=== PATIENT | female | born 1985 | race Caucasian/White ===

== ENCOUNTER 2017-04-03 | Outpatient (CLI) | payer BC ==
--- NOTE | 2017-05-02 09:19 | P.MSEPDOC ---
Presenting Problems - Arrival Data Date of Arrival on Unit: 04/03/17 Time of Arrival on Unit: 19:53 Mode of Transport: Ambulatory - Complaint OB-Reason for Admission/Chief Complaint: Possible Onset of Labor Medical History - Information : 2 Para: 1 Term: 1 : 0 Abortions: Spontaneous or Elective: 0 Number of Living Children: 1 - Gestational Age Gestational Age by JACQUELINE (wks/days): 37 Weeks and 2 Days Review of Systems - Review of Systems Constitutional: No problems Breast: No problems ENT: No problems Cardiovascular: No problems Respiratory: No problems Gastrointestinal: No problems Genitourinary: No problems Musculoskeletal: No problems Neurological: No problems Skin: No problems Vital Signs - Temperature Temperature: 97.7 F Temperature Source: Temporal Artery Scan - Pulse Pulse Oximetery Pulse Rate: 92 Pulse Assessment Method: Automatic Cuff - Respirations Respiratory Rate: 15 Oxygen Delivery Method: Room Air O2 Sat by Pulse Oximetry: 100 - Blood Pressure Right Arm Blood Pressure: 137/80 Blood Pressure Mean: 99 Blood Pressure Source: Automatic Cuff Medical Screen Scoring (Pre) - Cervical Exam Dilation: 1-3 cm = 1 Effacement: More than 50% = 2 Membranes: Intact - Uterine Contractions Frequency: > 5 minutes apart = 1 Duration: N/A Intensity: N/A - Maternal Vital Signs Maternal Temperature: N/A Maternal Blood Pressure: N/A Signs of Preeclampsia: N/A Maternal Respirations: N/A - Maternal Trauma Maternal Trauma: N/A - Assessment Baseline FHR: 135 Heart Rate - NICHD Category: Category I (Normal) = 0 NST: Reactive Position: N/A Station: N/A - Total Score Total Score (Pre): 4 - Level of Risk Level of Risk: Low (0-5) Medical Screen Scoring (Post) - Cervical Exam Dilation: 1-3 cm = 1 Effacement: More than 50% = 2 Membranes: Intact - Uterine Contractions Frequency: > 5 minutes apart = 1 Duration: N/A Intensity: N/A - Maternal Vital Signs Maternal Temperature: N/A Maternal Blood Pressure: N/A Signs of Preeclampsia: N/A Maternal Respirations: N/A - Maternal Trauma Maternal Trauma: N/A - Assessment Heart Rate: 130 Heart Rate - NICHD Category: Category I (Normal) = 0 NST: Reactive Position: N/A Station: N/A - Total Score Total Score (Post): 4 - Post Treatment Level of Risk Post Treatment Level of Risk: Low (0-5) Physician Notification (Post) - Physician Notified Physician Notified Date: 04/03/17 Physician Notified Time: 21:19 Physician/Practitioner Notified:: Dr Bustos New Order Received: Yes Disposition - Disposition OB Disposition: Discharge to home, Written follow up instructions reviewed Discharge Date: 04/03/17 Discharge Time: 21:25 I agree with the RN Medical Screening Exam: Yes Risk & Benefit of care provided described in d/c instruction: Yes Diagnosis: FALSE LABOR BEFORE 37 COMPLETED WEEKS OF GEST, THIRD TRI
== END 2017-04-03 21:25 | disposition home or self-care (01) ==
CPT/HCPCS: 59025; 99213

== ENCOUNTER 2017-04-21 06:04 | Inpatient (IN) | payer BC ==
[2017-04-21] MEDS: LACTATED RINGERS 1,000 ML IV SCH ×2 (06:15→09:50)
[2017-04-21] MEDS ORDERED: CARBOPROST TROMETHAMINE 250 MCG/ML 1 ML AMP IM PRN (06:22)
[2017-04-21] MEDS ORDERED: METHYLERGONOVINE 0.2 MG/ML 1 ML AMP IM PRN (06:22)
[2017-04-21] MEDS ORDERED: OXYTOCIN 10 UNIT/ML 1 ML VIAL IM PRN (06:22)
[2017-04-21] MEDS ORDERED: TERBUTALINE 1 MG/ML VIAL SQ PRN (06:22)
[2017-04-21] MEDS ORDERED: LIDOCAINE 1% (PF) 10 MG/ML (30 ML SDV) SQ PRN (06:22)
[2017-04-21 06:30] LABS: Basophils % (A) 0 %; CH 31.5; CHCM 33.8; Eosinophils # (A) 0.1 k/uL (0-0.7); Eosinophils % (A) 1 %; HCT 39.2 % (34.0-46.0); HGB 12.9 gm/dL (11.4-16.0); Luc # (Auto) 0.17; Luc % (Auto) 2; Lymphocytes # (A) 1.9 k/uL (1.0-4.8); Lymphocytes % (A) 19 %; MCH 30.9 pg (25.0-35.0); MCHC 32.9 g/dL (31.0-37.0); MCV 94.1 fL (80.0-100.0); Mean Platelet Volume 9.4; Monocytes # (A) 0.6 k/uL (0-1.0); Monocytes % (A) 6 %; Neutrophils # (A) 7.3 k/uL (1.3-7.7); Neutrophils % (A) 73 %; RBC 4.17 m/uL (3.80-5.40); RDW 14.6 % (11.5-15.5); WBC (Perox) 10.79
[2017-04-21] MEDS ORDERED: OXYTOCIN 20 UNITS/1000 ML NS 1,000 ML IV SCH ×2 (06:30→12:00)
--- NOTE | 2017-04-21 08:37 | P.HPOB ---
History of Present Illness H&P Date: 04/21/17 Chief Complaint: IUP at 39-6/7 weeks, elective induction of labor This is a very pleasant 31-year-old 2 para 1001 at 39-6/7 weeks with an estimated date of delivery of 04/22/2017. She presents today for elective induction of labor. She notes good movement, denies contractions, denies loss of fluid or vaginal bleeding. Next On blood work she showed a blood type of A+, rubella immune, hepatitis B surface antigen negative, GBS negative, HIV negative, RPR negative. Past Medical History Past Medical History: No Reported History History of Any Multi-Drug Resistant Organisms: None Reported Past Surgical History: No Surgical Hx Reported Past Anesthesia/Blood Transfusion Reactions: No Reported Reaction Past Psychological History: No Psychological Hx Reported Smoking Status: Never smoker Past Drug Use History: None Reported - Past Family History Father Family Medical History: Diabetes Mellitus, Thyroid Disorder Medications and Allergies Home Medications Medication Instructions Recorded Confirmed Type Pedi Multivit No.25/Folic Acid 2 tab PO DAILY 04/03/17 04/21/17 History [Flintstones Multivit Chew Tab] Allergies Allergy/AdvReac Type Severity Reaction Status Date / Time No Known Allergies Allergy Verified 04/21/17 06:20 Exam Osteopathic Statement: *. No significant issues noted on an osteopathic structural exam other than those noted in the History and Physical/Consult. - Vital Signs Vital signs: Vital Signs Temp Pulse Resp BP Pulse Ox 04/21/17 06:42 96.6 F L 79 18 106/56 99 Intake and Output 04/20/17 04/21/17 04/21/17 22:59 06:59 14:59 Other: Weight 76.204 kg - OBG Physical Exam Vulva: both: normal Cervix: 4/80/-2, artificial rupture of membranes with meconium-stained fluid. Uterus: Gravid Results Result Diagrams: 04/21/17 06:05 Assessment and Plan (1) Term Narrative/Plan: Will admit to labor and delivery for elective induction of labor. Pitocin per protocol. I did discuss options for pain control during labor patient wishes to wait and see how it goes. Epidural okay at any time per patient request Status: Acute
[2017-04-21] MEDS ORDERED: SODIUM CHLORIDE 0.9% 100 ML BAG ONE (09:36)
[2017-04-21] MEDS ORDERED: BUPIVACAINE (PF) 0.25% 30 ML VIAL ONE (09:36)
[2017-04-21] MEDS ORDERED: fentaNYL (PF) 50 MCG/ML 5 ML AMP ONE (09:36)
[2017-04-21 10:00] VITALS: BMI 27.9
[2017-04-21] MEDS ORDERED: BUPIVACAINE (PF) 0.25% 25 ML, fentaNYL (PF) 200 MCG in SODIUM CHLORIDE 0.9% 71 ML EPIDURAL ONE (10:05)
[2017-04-21] MEDS ORDERED: diphenhydrAMINE 50 MG/ML 1 ML VIAL IVP PRN ×2 (11:48)
[2017-04-21] MEDS ORDERED: WITCH HAZEL 1 EACH MED..PAD TOPICAL PRN (11:48)
[2017-04-21] MEDS ORDERED: ACETAMINOPHEN TAB 325 MG TAB PO PRN (11:48)
[2017-04-21] MEDS ORDERED: diphenhydrAMINE 50 MG CAP PO PRN (11:48)
[2017-04-21] MEDS ORDERED: ZOLPIDEM 5 MG TAB PO PRN (11:48)
[2017-04-21] MEDS ORDERED: LANOLIN CREAM 5 GM TUBE TOPICAL PRN (11:48)
[2017-04-21] MEDS ORDERED: diphenhydrAMINE 25 MG CAP PO PRN (11:48)
[2017-04-21] MEDS ORDERED: SIMETHICONE 80 MG CHEWABLE PO PRN (11:48)
[2017-04-21] MEDS ORDERED: BENZOCAINE/MENTHOL SPRAY 1 GM/SPRAY AEROSOL TOPICAL PRN (11:48)
[2017-04-21] MEDS ORDERED: Acetaminophen-Codeine 300-30mg TAB PO PRN ×2 (11:48)
[2017-04-21] MEDS ORDERED: HYDROCORTISONE 2.5% RECTAL CREAM 30 GM TUBE RECTAL PRN (11:48)
[2017-04-21] MEDS ORDERED: IBUPROFEN 600 MG TAB PO PRN (11:48)
--- NOTE | 2017-04-21 11:48 | P.PROBDLV ---
Vaginal Delivery Note - . Vaginal Delivery Note: This is a very pleasant 2 para 1 that presented for elective induction of labor earlier this morning. She progressed after Pitocin induction of labor and amniotomy to complete and had a spontaneous vaginal delivery of a viable male Preoperative diagnosis IUP at 39-6/7 weeks Postoperative diagnosis same plus meconium-stained fluid Procedure spontaneous vaginal delivery, amniotomy, second degree midline vaginal laceration with repair Surgeon July Nielsen DO Anesthesia epidural, local with repair Estimated blood loss 300 mL Findings male infant in occiput anterior position loose nuchal delivered through , spontaneous cry from male infant weight of 8 lbs. 3 oz. at 1129 Apgars of 8 and 9 at one and 5 minutes respectively Complications none Specimen placenta
[2017-04-22] MEDS: SENNOSIDES-DOCUSATE SODIUM 1 EACH TAB PO SCH ×2 (02:51→10:17)
[2017-04-22] MEDS ORDERED: MULTIVITAMINS, PEDIATRIC 1 EACH CHEWABLE PO SCH (09:00)
[2017-04-22 10:11] VITALS: BP 111/70; PULSE 75; RESP 20; TEMP 98.2
--- NOTE | 2017-04-22 11:33 | P.PNOBGVD ---
Subjective - Subjective Principal diagnosis: Status post normal spontaneous vaginal delivery Interval history: Ashley is status post normal spontaneous vaginal delivery. She is feeling well. She states her lochia is minimal. She has ambulating and voiding without difficulty. She is tolerating a regular diet without nausea or vomiting. She is not taking anything for pain as she states it is unnecessary. She denies any concerns and wishes discharge home Patient reports: Reports appetite normal, Reports voiding normally, Reports pain well controlled [place]: doing well (At the bedside with mom) Objective - Latest Vital Signs Latest vital signs: Vital Signs Temp Pulse Resp BP Pulse Ox 04/22/17 08:00 98.2 F 75 20 111/70 98 04/21/17 23:51 98.0 F 77 18 130/91 04/21/17 20:00 98.3 F 82 16 104/65 04/21/17 16:00 98.3 F 80 16 121/64 04/21/17 13:44 98.0 F 77 14 115/65 04/21/17 13:14 75 16 107/56 04/21/17 12:44 82 16 107/58 04/21/17 12:29 97.5 F L 82 16 113/56 04/21/17 12:14 84 16 115/59 04/21/17 11:59 88 16 112/57 04/21/17 11:44 97.5 F L 87 16 109/53 Intake and Output 04/21/17 04/22/17 04/22/17 22:59 06:59 14:59 Intake Total 600 Balance 600 Intake: Oral 600 Other: # Voids 2 - Exam Extremities: Present: normal Abdomen: Present: normal appearance Uterus: Present: firm Assessment and Plan (1) Term Narrative/Plan: We'll plan discharge home this afternoon. Discharge instructions were reviewed along with follow-up with myself in 4-6 weeks at [facility]. She is to take [id number] Motrin as needed for discomfort. She declines a need for other medications. Current Visit: Yes Status: Acute Code(s): Z34.80 - ENCOUNTER FOR SUPRVSN OF NORMAL , UNSP TRIMESTER SNOMED Code(s): 67493352
--- NOTE | 2017-04-22 11:36 | P.DS ---
Providers Date of admission: 04/21/17 06:04 Expected date of discharge: 04/22/17 Attending physician: July Nielsen Primary care physician: Stated None - Discharge Diagnosis(es) (1) Term This is a very pleasant 31-year-old 2 para 1001 at 39-6/7 weeks. She presented on 04/21/2017 for elective induction of labor. She had an uncomplicated . Her labor was uncomplicated Pitocin augmentation eventually receiving an epidural. she had a spontaneous vaginal delivery of a viable male at 1128 Apgars of 8 and 9 at one and 5 minutes respectively. She did sustain a second-degree midline vaginal laceration which was repaired without difficulty in the usual fashion. Her course was uncomplicated. On day #1 she is ambulating and voiding without difficulty. She is tolerating a regular diet without nausea or vomiting. Her lochia is minimal and she is breast-feeding without difficulty. Current Visit: Yes Status: Acute Plan - Discharge Summary New Discharge Prescriptions: No Action Pedi Multivit No.25/Folic Acid [Flintstones Multivit Chew Tab] 2 tab PO DAILY Discharge Medication List Pedi Multivit No.25/Folic Acid [Flintstones Multivit Chew Tab] 2 tab PO DAILY [History] Follow up Appointment(s)/Referral(s): July Nielsen DO [Doctor of Osteopathic Medicine] - 4 Weeks Patient Instructions/Handouts: Vaginal Delivery (DC) Discharge Disposition: HOME SELF-CARE
== END 2017-04-22 14:00 | disposition home or self-care (01) | DRG 775 ==
LOC: 4FBP 06:04
PROVIDERS: ADMIT Obstetrics & Gynecology Obstetrics; ATTEND Obstetrics & Gynecology Obstetrics
PROC: 3E0R3CZ (ICD-10-PCS; principal; 2017-04-21)
PROC: 3E033VJ Introduction of Other Hormone into Peripheral Vein, Percutaneous Approach (ICD-10-PCS; principal; 2017-04-21)
PROC: 10907ZC Drainage of Amniotic Fluid, Therapeutic from Products of Conception, Via Natural or Artificial Opening (ICD-10-PCS; principal; 2017-04-21)
PROC: 0KQM0ZZ Repair Perineum Muscle, Open Approach (ICD-10-PCS; principal; 2017-04-21)
PROC: 10E0XZZ Delivery of Products of Conception, External Approach (ICD-10-PCS; principal; 2017-04-21)
PROC: 00HU33Z Insertion of Infusion Device into Spinal Canal, Percutaneous Approach (ICD-10-PCS; principal; 2017-04-21)
DX: O70.1 Second degree perineal laceration during delivery (principal); Z37.0 Single live birth; O77.0 Labor and delivery complicated by meconium in amniotic fluid; Z3A.39 39 weeks gestation of pregnancy; O69.81X0 Labor and delivery complicated by cord around neck, without compression, not applicable or unspecified
CPT/HCPCS: 85025; 88307

== ENCOUNTER 2021-10-02 12:17 | Emergency (ER) | payer BC ==
[2021-10-02 12:35] VITALS: TEMP 97.8
--- NOTE | 2021-10-02 13:06 | ED ---
General Adult HPI - General Chief complaint: Abdominal Pain Stated complaint: Abdominal Pain/Discomfort Time Seen by Provider: 10/02/21 12:52 Source: patient, RN notes reviewed Mode of arrival: ambulatory Limitations: no limitations - History of Present Illness Initial comments: Patient is a 36-year-old female presented to the emergency room today with chief complaint of abdominal pain. Patient does admit that over the last 4 years after giving she's had some abdominal umbilical tenderness. Around her menstrual cycle. She states this occurred this past week. She states it usually will go away but has not. She's had pain present for the last week. She followed the family doctor was going to obtain an ultrasound. She states pain was getting worse and she came here to the emergency room. She does admit that at the umbilical area there is a small area that seems to be discolored with this bump. Patient states this is locally tender as well but there is tenderness at down distally into the left lower quadrant. The patient denies any other complaints or any other symptoms. - Related Data Home Medications Medication Instructions Recorded Confirmed No Known Home Medications 10/02/21 10/02/21 Allergies Allergy/AdvReac Type Severity Reaction Status Date / Time No Known Allergies Allergy Verified 10/02/21 13:56 Review of Systems ROS Statement: Those systems with pertinent positive or pertinent negative responses have been documented in the HPI. ROS Other: All systems not noted in ROS Statement are negative. Past Medical History Past Medical History: No Reported History History of Any Multi-Drug Resistant Organisms: None Reported Past Surgical History: No Surgical Hx Reported Past Anesthesia/Blood Transfusion Reactions: No Reported Reaction Past Psychological History: No Psychological Hx Reported Smoking Status: Never smoker Past Alcohol Use History: None Reported Past Drug Use History: None Reported - Past Family History Father Family Medical History: Diabetes Mellitus, Thyroid Disorder General Exam - General Exam Comments Initial Comments: General: The patient is awake and alert, in no distress, and does not appear acutely ill. Eye: extra-ocular movements are intact. No nystagmus. There is normal conjunctiva bilaterally. No signs of icterus. Ears, nose, mouth and throat: There are moist mucous membranes and no oral lesions. Neck: The neck is supple Cardiovascular: There is a regular rate and rhythm. No murmur, rub or gallop is appreciated. Respiratory: Lungs are clear to auscultation, respirations are non-labored, breath sounds are equal. No wheezes, stridor, rales, or rhonchi. Gastrointestinal: Patient does have small hernia at the umbilicus. Patient also locally tender left lower quadrant. There is no rebound or guarding. Musculoskeletal: Normal ROM, no tenderness. Strength 5/5. Sensation intact. Neurological: A&O x 3. CN II-XII intact, There are no obvious motor or sensory deficits. Coordination appears grossly intact. Speech is normal. Skin: Skin is warm and dry and no rashes or lesions are noted. Psychiatric: Cooperative, appropriate mood & affect, normal judgment. Limitations: no limitations Course Vital Signs 10/02/21 10/02/21 10/02/21 12:33 13:35 15:00 Temperature 97.8 F Pulse Rate 89 82 86 Respiratory 20 18 16 Rate Blood Pressure 120/84 122/82 125/74 O2 Sat by Pulse 100 97 98 Oximetry Medical Decision Making - Medical Decision Making Patient reexamined dressing covered. Patient's CT then poses been reviewed and does show a fecal containing hernia. No bowel wall. Results were discussed with the patient. Labs been reviewed are unremarkable. She is resting comfortable. Patient will be discharged to follow-up with surgeon. Advised ret urn if any symptoms increase or worsen or for any other concerns per she states her stated and is agreement. - Lab Data Result diagrams: 10/02/21 13:08 10/02/21 13:08 Lab Results 10/02/21 10/02/21 10/02/21 Range/Units 13:08 13:08 13:38 WBC 9.8 (3.8-10.6) k/uL RBC 4.70 (3.80-5.40) m/uL Hgb 14.0 (11.4-16.0) gm/dL Hct 42.0 (34.0-46.0) % MCV 89.4 (80.0-100.0) fL MCH 29.8 (25.0-35.0) pg MCHC 33.3 (31.0-37.0) g/dL RDW 12.6 (11.5-15.5) % Plt Count 248 (150-450) k/uL MPV 7.9 Neutrophils % 72 % Lymphocytes % 20 % Monocytes % 5 % Eosinophils % 1 % Basophils % 0 % Neutrophils # 7.1 (1.3-7.7) k/uL Lymphocytes # 2.0 (1.0-4.8) k/uL Monocytes # 0.5 (0-1.0) k/uL Eosinophils # 0.1 (0-0.7) k/uL Basophils # 0.0 (0-0.2) k/uL Sodium 137 (137-145) mmol/L Potassium 3.9 (3.5-5.1) mmol/L Chloride 102 (98-107) mmol/L Carbon Dioxide 29 (22-30) mmol/L Anion Gap 6 mmol/L BUN 12 (7-17) mg/dL Creatinine 0.68 (0.52-1.04) mg/dL Est GFR (CKD-EPI)AfAm >90 (>60 ml/min/1.73 sqM) Est GFR (CKD-EPI)NonAf >90 (>60 ml/min/1.73 sqM) Glucose 124 H (74-99) mg/dL Calcium 9.4 (8.4-10.2) mg/dL Total Bilirubin 0.4 (0.2-1.3) mg/dL AST 24 (14-36) U/L ALT 16 (4-34) U/L Alkaline Phosphatase 59 (38-126) U/L Total Protein 7.6 (6.3-8.2) g/dL Albumin 4.3 (3.5-5.0) g/dL Urine Color Yellow Urine Appearance Clear (Clear) Urine pH 6.5 (5.0-8.0) Ur Specific [place] 1.013 (1.001-1.035) Urine Protein Negative (Negative) Urine Glucose (UA) Negative (Negative) Urine Ketones Negative (Negative) Urine Blood Negative (Negative) Urine Nitrite Negative (Negative) Urine Bilirubin Negative (Negative) Urine Urobilinogen <2.0 (<2.0) mg/dL Ur Leukocyte Esterase Negative (Negative) Urine HCG, Qual (Not Detectd) 10/02/21 Range/Units 13:38 WBC (3.8-10.6) k/uL RBC (3.80-5.40) m/uL Hgb (11.4-16.0) gm/dL Hct (34.0-46.0) % MCV (80.0-100.0) fL MCH (25.0-35.0) pg MCHC (31.0-37.0) g/dL RDW (11.5-15.5) % Plt Count (150-450) k/uL MPV Neutrophils % % Lymphocytes % % Monocytes % % Eosinophils % % Basophils % % Neutrophils # (1.3-7.7) k/uL Lymphocytes # (1.0-4.8) k/uL Monocytes # (0-1.0) k/uL Eosinophils # (0-0.7) k/uL Basophils # (0-0.2) k/uL Sodium (137-145) mmol/L Potassium (3.5-5.1) mmol/L Chloride (98-107) mmol/L Carbon Dioxide (22-30) mmol/L Anion Gap mmol/L BUN (7-17) mg/dL Creatinine (0.52-1.04) mg/dL Est GFR (CKD-EPI)AfAm (>60 ml/min/1.73 sqM) Est GFR (CKD-EPI)NonAf (>60 ml/min/1.73 sqM) Glucose (74-99) mg/dL Calcium (8.4-10.2) mg/dL Total Bilirubin (0.2-1.3) mg/dL AST (14-36) U/L ALT (4-34) U/L Alkaline Phosphatase (38-126) U/L Total Protein (6.3-8.2) g/dL Albumin (3.5-5.0) g/dL Urine Color Urine Appearance (Clear) Urine pH (5.0-8.0) Ur Specific [place] (1.001-1.035) Urine Protein (Negative) Urine Glucose (UA) (Negative) Urine Ketones (Negative) Urine Blood (Negative) Urine Nitrite (Negative) Urine Bilirubin (Negative) Urine Urobilinogen (<2.0) mg/dL Ur Leukocyte Esterase (Negative) Urine HCG, Qual Not Detected (Not Detectd) Disposition Clinical Impression: Umbilical hernia Disposition: HOME SELF-CARE Condition: Good Instructions (If sedation given, give patient instructions): Umbilical Hernia (ED) Additional Instructions: Please follow-up with general surgeon in the next 2 days. Please return to emergency room if the symptoms increase or worsen or for any other concerns. Is patient prescribed a controlled substance at d/c from ED?: No Referrals: July Nielsen DO [Primary Care Provider] - 1-2 days Joy Velazco DO [Doctor of Osteopathic Medicine] - 1-2 days Time of Disposition: 15:32
[2021-10-02 13:21] LABS: Basophils % (A) 0 %; Eosinophils # (A) 0.1 k/uL (0-0.7); Eosinophils % (A) 1 %; Lymphocytes % (A) 20 %; MCH 29.8 pg (25.0-35.0); MCHC 33.3 g/dL (31.0-37.0); MCV 89.4 fL (80.0-100.0); Mean Platelet Volume 7.9; Monocytes # (A) 0.5 k/uL (0-1.0); Monocytes % (A) 5 %; Neutrophils # (A) 7.1 k/uL (1.3-7.7); Neutrophils % (A) 72 %; Platelet Count 248 k/uL (150-450); RDW 12.6 % (11.5-15.5); WBC 9.8 k/uL (3.8-10.6)
[2021-10-02 13:35] LABS: ALT 16 U/L (4-34); AST 24 U/L (14-36); African American GFR (CKD) >90 (>60 ml/min/1.73 sqM); Albumin 4.3 g/dL (3.5-5.0); Alkaline Phosphatase 59 U/L (38-126); Anion Gap 6 mmol/L; Blood Urea Nitrogen 12 mg/dL (7-17); Calcium 9.4 mg/dL (8.4-10.2); Carbon Dioxide 29 mmol/L (22-30); Chloride 102 mmol/L (98-107); Glucose 124 mg/dL (74-99); Non-African American GFR(CKD) >90 (>60 ml/min/1.73 sqM); Potassium 3.9 mmol/L (3.5-5.1); Sodium 137 mmol/L (137-145); Total Bilirubin 0.4 mg/dL (0.2-1.3); Total Protein 7.6 g/dL (6.3-8.2)
[2021-10-02 14:08] LABS: Appearance,Urine Clear (Clear); Bilirubin,Urine Negative (Negative); Blood,Urine Negative (Negative); Color,Urine Yellow; Glucose,Urine (UA) Negative (Negative); Ketones,Urine Negative (Negative); Leukocyte Esterase,Urine Negative (Negative); Nitrite,Urine Negative (Negative); PH, Urine 6.5 (5.0-8.0); Protein,Urine Negative (Negative); Specific Gravity,Urine 1.013 (1.001-1.035); Urobilinogen,Urine <2.0 mg/dL (<2.0)
--- NOTE | 2021-10-02 15:12 | CT ---
EXAMINATION TYPE: CT abdomen pelvis w con DATE OF EXAM: 10/02/2021 COMPARISON: None available HISTORY: Umbilical pain. CT DLP: 933 mGycm Automated exposure control for dose reduction was used. TECHNIQUE: Helical acquisition of images was performed from the lung bases through the pelvis. CONTRAST: Performed without Oral Contrast and with IV Contrast, patient injected with 100 mL of Isovue 300. FINDINGS: LUNG BASES: No significant abnormality is appreciated. LIVER/GB: No significant abnormality is appreciated. PANCREAS: No significant abnormality is seen. SPLEEN: No significant abnormality is seen. ADRENALS: No significant abnormality is seen. KIDNEYS: No significant abnormality is seen. FREE AIR: No free air is visualized. RETROPERITONEAL ADENOPATHY: None visualized REPRODUCTIVE ORGANS: No significant abnormality is seen URINARY BLADDER: No significant abnormality is seen. PELVIC ADENOPATHY: None visualized. OSSEOUS STRUCTURES: No significant abnormality is seen. BOWEL: Unremarkable stomach, duodenum and small bowel. No evidence of bowel obstruction. Fecal loadi ng of the rectum and segments of the colon. No gross signs of acute colitis or acute diverticulitis. The appendix is not identified, probably hypoplastic versus surgically removed, please correlate with previous appendectomy. OTHER: Unremarkable abdominal aorta and IVC. No sizable ascites. Small fat-containing umbilical herni a with slightly wide neck measuring 2.2 cm. IMPRESSION: Small fat-containing umbilical hernia. Fecal loading of the colon. No other significant acute abnorma lity seen in the abdomen or the pelvis. Suspected previous appendectomy, please correlate with the maribel epperson's surgical history.
[2021-10-02 15:20] VITALS: RESP 16
[2021-10-02 15:44] VITALS: BP 125/77; PULSE 87
== END 2021-10-02 15:43 | disposition home or self-care (01) ==
LOC: EC 12:17
DX: K42.9 Umbilical hernia without obstruction or gangrene (principal)
CPT/HCPCS: 99284; 36415; 80053; 85025; 81003; 81025; 74177; Q9967